=== PATIENT | male | born 1995 | race Caucasian/White ===

== ENCOUNTER 2021-06-25 12:36 | Inpatient (IN) | payer BC ==
[2021-06-25] MEDS ORDERED: Morphine 4 MG/ML VIAL ONE (13:18)
[2021-06-25] MEDS ORDERED: methylPREDNISolone Sod Succ/PF 125 MG/2 ML VIAL ONE (13:18)
[2021-06-25 13:35] LABS: Hemoglobin 12.8 g/dL (14.0-18.0); Mean Corpuscular HGB CONC 32.9 g/dL (32.0-36.0); Mean Corpuscular Hemoglobin 29.8 pg (27.0-31.0); Mean Corpuscular Volume 90.8 fL (78.0-98.0); Platelet Count 399 thou/uL (130-400); RBC Distribution Width 12.5 % (11.5-14.5); Red Blood Cell (RBC) Count 4.29 mill/uL (4.70-6.10)
[2021-06-25 13:53] LABS: Band 31 % (5-11); Eosinophils 2 % (0-10); Lymphocytes 8 % (21-51); MDiff Complete? YES; Monocytes 4 % (0-10); Neutrophil 54 % (42-75); Platelet Morphology Comment Appears Adequate; Polychromasia SLIGHT = 2-3 cells (100X) (0-2/hpf)
[2021-06-25 13:55] LABS: ALT (SGPT) 19 U/L (8-55); AST (SGOT) 12 U/L (5-34); Alkaline Phosphatase 55 U/L (40-110); Anion Gap 15 mmol/L (10-20); BUN (Urea Nitrogen) 9 mg/dL (8.9-20.6); Bilirubin, Total 0.4 mg/dL (0.2-1.2); Calc. Creatinine Clearance 0 mL/min (70-130); Calcium 9.1 mg/dL (7.8-10.44); Carbon Dioxide 27 mmol/L (22-29); Chloride 95 mmol/L (98-107); Globulin 3.7 g/dL (2.4-3.5); Glucose 127 mg/dL (70-105); Lipase 56 U/L (8-78); Potassium 3.7 mmol/L (3.5-5.1); Protein, Total 6.7 g/dL (6.0-8.3); Sodium 133 mmol/L (136-145)
[2021-06-25] MEDS ORDERED: Acetaminophen 650 MG Suppository PR PRN (14:48)
[2021-06-25] MEDS ORDERED: Ondansetron ODT 4 MG TAB PO PRN (14:48)
[2021-06-25] MEDS: Sodium Chloride 0.9% 1,000 ML IV SCH (16:05)
[2021-06-25 17:15] LABS: SARS-CoV-2 NAA Rapid Test Not Detected (NotDetected)
[2021-06-25] MEDS: metroNIDAZOLE 500 MG TAB PO SCH (21:51)
[2021-06-25] MEDS: Morphine 4 MG/ML VIAL SLOW IVP PRN (21:51)
[2021-06-25] MEDS: methylPREDNISolone Sod Succ 40 MG VIAL IVP SCH (21:51)
[2021-06-26] MEDS: Sodium Chloride 0.9% 1,000 ML IV SCH (01:50)
[2021-06-26] MEDS: Morphine 4 MG/ML VIAL SLOW IVP PRN ×4 (02:09→19:48)
[2021-06-26 02:51] VITALS: BMI 18.9
[2021-06-26] MEDS: methylPREDNISolone Sod Succ 40 MG VIAL IVP SCH ×2 (06:26→16:31)
[2021-06-26] MEDS ORDERED: methylPREDNISolone Sod Succ 40 MG VIAL IVP SCH (07:15)
[2021-06-26 08:05] LABS: Anion Gap 17 mmol/L (10-20); BUN (Urea Nitrogen) 13 mg/dL (8.9-20.6); Calc. Creatinine Clearance 148 mL/min (70-130); Calcium 8.8 mg/dL (7.8-10.44); Carbon Dioxide 22 mmol/L (22-29); Chloride 102 mmol/L (98-107); Glucose 126 mg/dL (70-105); Sodium 137 mmol/L (136-145)
[2021-06-26] MEDS: metroNIDAZOLE 500 MG TAB PO SCH (08:28)
[2021-06-26 08:30] LABS: Band 71 % (5-11); Lymphocytes 5 % (21-51); MDiff Complete? YES; Mean Corpuscular HGB CONC 32.1 g/dL (32.0-36.0); Mean Corpuscular Volume 90.3 fL (78.0-98.0); Mean Platelet Volume 6.3 fL (7.4-10.4); Metamyelocyte 3 % (0-0); Monocytes 3 % (0-10); Myelocyte 2 % (0-0); Neutrophil 12 % (42-75); Platelet Count 396 thou/uL (130-400); Platelet Morphology Comment Appears Adequate; Polychromasia SLIGHT = 2-3 cells (100X) (0-2/hpf); RBC Distribution Width 12.5 % (11.5-14.5); Reactive Lymphocytes 4 % (0-10); Red Blood Cell (RBC) Count 4.49 mill/uL (4.70-6.10); Target Cells SLIGHT = 2-5 cells (100X) (0-1/hpf); White Blood Cell (WBC) Count 13.7 thou/uL (4.8-10.8)
[2021-06-26] MEDS: traMADol HCl 50 MG TAB PO PRN ×3 (10:08→22:29)
[2021-06-26] MEDS: Acetaminophen 325 MG TAB PO PRN ×2 (16:30→21:14)
[2021-06-26] MEDS: Melatonin 3 MG TAB PO PRN (21:14)
[2021-06-27] MEDS: methylPREDNISolone Sod Succ 40 MG VIAL IVP SCH ×4 (00:12→23:13)
[2021-06-27] MEDS: Morphine 4 MG/ML VIAL SLOW IVP PRN ×5 (00:16→21:25)
[2021-06-27] MEDS: Acetaminophen 325 MG TAB PO PRN ×2 (00:54→23:13)
[2021-06-27] MEDS: traMADol HCl 50 MG TAB PO PRN ×4 (03:15→19:45)
[2021-06-27 10:41] LABS: Anion Gap 11 mmol/L (10-20); BUN (Urea Nitrogen) 16 mg/dL (8.9-20.6); Calc. Creatinine Clearance 134 mL/min (70-130); Calcium 8.8 mg/dL (7.8-10.44); Carbon Dioxide 29 mmol/L (22-29); Chloride 102 mmol/L (98-107); Glucose 133 mg/dL (70-105); Potassium 4.3 mmol/L (3.5-5.1); Sodium 138 mmol/L (136-145)
[2021-06-27 11:53] LABS: Band 52 % (5-11); Lymphocytes 4 % (21-51); MDiff Complete? YES; Mean Corpuscular HGB CONC 31.5 g/dL (32.0-36.0); Mean Corpuscular Hemoglobin 28.7 pg (27.0-31.0); Mean Corpuscular Volume 91.2 fL (78.0-98.0); Mean Platelet Volume 6.1 fL (7.4-10.4); Metamyelocyte 4 % (0-0); Monocytes 4 % (0-10); Neutrophil 36 % (42-75); Platelet Count 473 thou/uL (130-400); RBC Distribution Width 12.5 % (11.5-14.5); Red Blood Cell (RBC) Count 4.51 mill/uL (4.70-6.10)
[2021-06-28] MEDS: Morphine 4 MG/ML VIAL SLOW IVP PRN ×5 (00:40→19:16)
[2021-06-28] MEDS: traMADol HCl 50 MG TAB PO PRN ×5 (02:57→22:04)
[2021-06-28 08:05] LABS: Hemoglobin 12.8 g/dL (14.0-18.0); Mean Corpuscular HGB CONC 31.3 g/dL (32.0-36.0); Mean Corpuscular Hemoglobin 28.5 pg (27.0-31.0); Mean Platelet Volume 6.2 fL (7.4-10.4); Platelet Count 471 thou/uL (130-400); RBC Distribution Width 12.6 % (11.5-14.5); White Blood Cell (WBC) Count 16.1 thou/uL (4.8-10.8)
[2021-06-28 08:12] LABS: ALT (SGPT) 9 U/L (8-55); AST (SGOT) 8 U/L (5-34); Albumin 2.9 g/dL (3.5-5.0); Alkaline Phosphatase 56 U/L (40-110); Anion Gap 15 mmol/L (10-20); BUN (Urea Nitrogen) 17 mg/dL (8.9-20.6); Bilirubin, Total 0.3 mg/dL (0.2-1.2); Calc. Creatinine Clearance 128 mL/min (70-130); Calcium 9.1 mg/dL (7.8-10.44); Carbon Dioxide 29 mmol/L (22-29); Chloride 97 mmol/L (98-107); Glucose 118 mg/dL (70-105); Potassium 4.6 mmol/L (3.5-5.1); Protein, Total 5.9 g/dL (6.0-8.3); Sodium 136 mmol/L (136-145)
[2021-06-28] MEDS: methylPREDNISolone Sod Succ 40 MG VIAL IVP SCH ×2 (08:40→15:14)
[2021-06-28 10:21] LABS: Band 54 % (5-11); Lymphocytes 12 % (21-51); MDiff Complete? YES; Myelocyte 1 % (0-0); Neutrophil 33 % (42-75); Platelet Morphology Comment Appears Increased; Polychromasia SLIGHT = 2-3 cells (100X) (0-2/hpf); Toxic Granulation SLIGHT
[2021-06-28] MEDS ORDERED: Iopamidol-370 76% 500 ML 1 ML ONE (11:41)
[2021-06-29] MEDS: methylPREDNISolone Sod Succ 40 MG VIAL IVP SCH ×3 (00:12→15:54)
[2021-06-29] MEDS: Morphine 4 MG/ML VIAL SLOW IVP PRN ×5 (00:12→22:02)
[2021-06-29] MEDS: traMADol HCl 50 MG TAB PO PRN ×4 (03:28→18:17)
[2021-06-29 08:13] LABS: ALT (SGPT) 15 U/L (8-55); AST (SGOT) 14 U/L (5-34); Alkaline Phosphatase 48 U/L (40-110); Anion Gap 16 mmol/L (10-20); BUN (Urea Nitrogen) 18 mg/dL (8.9-20.6); Bilirubin, Total 0.3 mg/dL (0.2-1.2); Calc. Creatinine Clearance 142 mL/min (70-130); Calcium 8.9 mg/dL (7.8-10.44); Carbon Dioxide 28 mmol/L (22-29); Chloride 96 mmol/L (98-107); Globulin 3.2 g/dL (2.4-3.5); Glucose 119 mg/dL (70-105); Potassium 4.4 mmol/L (3.5-5.1); Protein, Total 6.2 g/dL (6.0-8.3); Sodium 136 mmol/L (136-145)
[2021-06-29 08:15] LABS: Hemoglobin 12.5 g/dL (14.0-18.0); Mean Corpuscular HGB CONC 31.1 g/dL (32.0-36.0); Mean Corpuscular Hemoglobin 28.2 pg (27.0-31.0); Mean Corpuscular Volume 90.7 fL (78.0-98.0); Mean Platelet Volume 6.2 fL (7.4-10.4); Platelet Count 436 thou/uL (130-400); RBC Distribution Width 12.8 % (11.5-14.5); Red Blood Cell (RBC) Count 4.42 mill/uL (4.70-6.10); White Blood Cell (WBC) Count 14.2 thou/uL (4.8-10.8)
[2021-06-29 10:35] LABS: Band 48 % (5-11); Lymphocytes 15 % (21-51); MDiff Complete? YES; Monocytes 1 % (0-10); Neutrophil 35 % (42-75); Platelet Morphology Comment Appears Increased; Polychromasia SLIGHT = 2-3 cells (100X) (0-2/hpf); Reactive Lymphocytes 1 % (0-10); Toxic Granulation SLIGHT; Vacuoles SLIGHT
[2021-06-30] MEDS: methylPREDNISolone Sod Succ 40 MG VIAL IVP SCH ×4 (00:26→23:44)
[2021-06-30] MEDS: Morphine 4 MG/ML VIAL SLOW IVP PRN ×5 (00:26→20:42)
[2021-06-30] MEDS: traMADol HCl 50 MG TAB PO PRN ×2 (03:13→08:17)
[2021-06-30 08:12] LABS: Hemoglobin 12.4 g/dL (14.0-18.0); Mean Corpuscular HGB CONC 31.7 g/dL (32.0-36.0); Mean Corpuscular Hemoglobin 28.8 pg (27.0-31.0); Mean Corpuscular Volume 90.8 fL (78.0-98.0); Mean Platelet Volume 6.1 fL (7.4-10.4); Platelet Count 427 thou/uL (130-400); RBC Distribution Width 12.9 % (11.5-14.5); White Blood Cell (WBC) Count 15.9 thou/uL (4.8-10.8)
[2021-06-30 08:22] LABS: Anion Gap 14 mmol/L (10-20); BUN (Urea Nitrogen) 18 mg/dL (8.9-20.6); Calc. Creatinine Clearance 142 mL/min (70-130); Calcium 9.1 mg/dL (7.8-10.44); Carbon Dioxide 31 mmol/L (22-29); Chloride 95 mmol/L (98-107); Glucose 120 mg/dL (70-105); Potassium 4.6 mmol/L (3.5-5.1); Sodium 135 mmol/L (136-145)
[2021-06-30 08:37] LABS: Band 53 % (5-11); Lymphocytes 8 % (21-51); MDiff Complete? YES; Metamyelocyte 1 % (0-0); Monocytes 4 % (0-10); Neutrophil 34 % (42-75); Platelet Morphology Comment Appears Increased; Polychromasia SLIGHT = 2-3 cells (100X) (0-2/hpf)
[2021-06-30] MEDS: Dicyclomine 10 MG CAP PO SCH ×3 (13:35→20:42)
[2021-06-30] MEDS: Acetaminophen 325 MG TAB PO PRN (22:46)
[2021-07-01] MEDS: traMADol HCl 50 MG TAB PO PRN ×4 (01:25→16:39)
[2021-07-01] MEDS: Morphine 4 MG/ML VIAL SLOW IVP PRN ×4 (03:48→21:16)
[2021-07-01] MEDS: methylPREDNISolone Sod Succ 40 MG VIAL IVP SCH ×2 (08:33→16:39)
[2021-07-01] MEDS: Dicyclomine 10 MG CAP PO SCH ×4 (08:33→21:15)
[2021-07-01] MEDS: Acetaminophen 325 MG TAB PO PRN (12:19)
[2021-07-02] MEDS: traMADol HCl 50 MG TAB PO PRN ×3 (00:07→19:53)
[2021-07-02] MEDS: methylPREDNISolone Sod Succ 40 MG VIAL IVP SCH ×3 (00:07→17:20)
[2021-07-02] MEDS: Melatonin 3 MG TAB PO PRN ×2 (00:08→22:21)
[2021-07-02] MEDS: Morphine 4 MG/ML VIAL SLOW IVP PRN ×4 (05:18→22:22)
[2021-07-02] MEDS: Dicyclomine 10 MG CAP PO SCH ×4 (07:59→20:02)
[2021-07-02 10:07] LABS: Anion Gap 15 mmol/L (10-20); BUN (Urea Nitrogen) 19 mg/dL (8.9-20.6); Calc. Creatinine Clearance 144 mL/min (70-130); Calcium 9.1 mg/dL (7.8-10.44); Carbon Dioxide 29 mmol/L (22-29); Chloride 95 mmol/L (98-107); Glucose 136 mg/dL (70-105); Magnesium 1.9 mg/dL (1.6-2.6); Phosphorus 4.2 mg/dL (2.3-4.7); Potassium 4.4 mmol/L (3.5-5.1); Sodium 135 mmol/L (136-145)
[2021-07-02 12:14] LABS: Hemoglobin 12.4 g/dL (14.0-18.0); Mean Corpuscular HGB CONC 31.6 g/dL (32.0-36.0); Mean Corpuscular Hemoglobin 28.7 pg (27.0-31.0); Mean Corpuscular Volume 90.9 fL (78.0-98.0); Mean Platelet Volume 6.3 fL (7.4-10.4); Platelet Count 465 thou/uL (130-400); Red Blood Cell (RBC) Count 4.33 mill/uL (4.70-6.10); White Blood Cell (WBC) Count 11.6 thou/uL (4.8-10.8)
[2021-07-02 12:56] LABS: Band 69 % (5-11); Lymphocytes 5 % (21-51); MDiff Complete? YES; Metamyelocyte 1 % (0-0); Neutrophil 21 % (42-75); Platelet Morphology Comment Appears Increased; Polychromasia SLIGHT = 2-3 cells (100X) (0-2/hpf); Reactive Lymphocytes 4 % (0-10)
[2021-07-02 19:34] LABS: SARS-CoV-2 PCR by NAA Not Detected (NotDetected)
[2021-07-02] MEDS: Enoxaparin Sodium 30 MG/0.3 ML SYRINGE SC SCH (20:02)
[2021-07-03] MEDS: methylPREDNISolone Sod Succ 40 MG VIAL IVP SCH ×4 (00:23→23:50)
[2021-07-03] MEDS: traMADol HCl 50 MG TAB PO PRN ×5 (01:30→23:54)
[2021-07-03] MEDS: Morphine 4 MG/ML VIAL SLOW IVP PRN ×3 (03:58→20:21)
[2021-07-03] MEDS: Dicyclomine 10 MG CAP PO SCH ×4 (08:45→20:18)
[2021-07-03] MEDS: Enoxaparin Sodium 30 MG/0.3 ML SYRINGE SC SCH (20:18)
[2021-07-03] MEDS: Melatonin 3 MG TAB PO PRN (22:18)
[2021-07-04] MEDS: Morphine 4 MG/ML VIAL SLOW IVP PRN ×4 (01:28→22:50)
[2021-07-04] MEDS: traMADol HCl 50 MG TAB PO PRN ×4 (05:08→20:00)
[2021-07-04] MEDS: Dicyclomine 10 MG CAP PO SCH ×4 (08:32→20:02)
[2021-07-04] MEDS: methylPREDNISolone Sod Succ 40 MG VIAL IVP SCH ×3 (08:33→23:01)
[2021-07-04] MEDS ORDERED: Iopamidol 370 76% 100 ML VIAL ONE (11:07)
[2021-07-04] MEDS: Enoxaparin Sodium 30 MG/0.3 ML SYRINGE SC SCH (20:01)
[2021-07-04] MEDS: Melatonin 3 MG TAB PO PRN (22:50)
[2021-07-05] MEDS: traMADol HCl 50 MG TAB PO PRN ×3 (02:28→12:39)
[2021-07-05 03:48] LABS: ALT (SGPT) 157 U/L (8-55); AST (SGOT) 34 U/L (5-34); Alkaline Phosphatase 75 U/L (40-110); Anion Gap 14 mmol/L (10-20); BUN (Urea Nitrogen) 23 mg/dL (8.9-20.6); Bilirubin, Total 0.3 mg/dL (0.2-1.2); CRP (Inflammatory) 1.91 mg/dL (= or < 0.5); Calc. Creatinine Clearance 151 mL/min (70-130); Calcium 9.1 mg/dL (7.8-10.44); Carbon Dioxide 27 mmol/L (22-29); Chloride 96 mmol/L (98-107); Glucose 132 mg/dL (70-105); Magnesium 2.1 mg/dL (1.6-2.6); Phosphorus 3.1 mg/dL (2.3-4.7); Potassium 4.3 mmol/L (3.5-5.1); Sodium 133 mmol/L (136-145)
[2021-07-05 03:57] LABS: Band 36 % (5-11); Hemoglobin 11.8 g/dL (14.0-18.0); Lymphocytes 6 % (21-51); MDiff Complete? YES; Mean Corpuscular HGB CONC 32.3 g/dL (32.0-36.0); Mean Corpuscular Hemoglobin 28.8 pg (27.0-31.0); Mean Corpuscular Volume 89.3 fL (78.0-98.0); Mean Platelet Volume 5.9 fL (7.4-10.4); Metamyelocyte 1 % (0-0); Monocytes 5 % (0-10); Myelocyte 1 % (0-0); Neutrophil 51 % (42-75); Platelet Count 520 thou/uL (130-400); Platelet Morphology Comment Appears Increased; RBC Distribution Width 13.1 % (11.5-14.5); RBC Morphology Normal; White Blood Cell (WBC) Count 18.3 thou/uL (4.8-10.8)
[2021-07-05] MEDS: Morphine 4 MG/ML VIAL SLOW IVP PRN ×3 (05:23→22:33)
[2021-07-05] MEDS: Dicyclomine 10 MG CAP PO SCH ×4 (08:50→21:01)
[2021-07-05] MEDS: methylPREDNISolone Sod Succ 40 MG VIAL IVP SCH ×3 (08:50→23:56)
[2021-07-05] MEDS: Polyethylene Glycol 3350 17 GM Packet PO SCH ×2 (16:46→21:01)
[2021-07-05] MEDS: Enoxaparin Sodium 30 MG/0.3 ML SYRINGE SC SCH (21:01)
[2021-07-05] MEDS: Ondansetron PF 4 MG/2 ML Vial IVP PRN (22:33)
[2021-07-06] MEDS: Morphine 4 MG/ML VIAL SLOW IVP PRN ×2 (03:34→10:30)
[2021-07-06] MEDS: Dicyclomine 10 MG CAP PO SCH ×4 (08:09→20:28)
[2021-07-06] MEDS: methylPREDNISolone Sod Succ 40 MG VIAL IVP SCH ×3 (08:10→23:45)
[2021-07-06] MEDS ORDERED: Lidocaine 1% PF 5 ML VIAL ONE (13:56)
[2021-07-06] MEDS ORDERED: PROPOFOL 200 MG/20 ML VIAL ONE (13:56)
[2021-07-06] MEDS ORDERED: Ondansetron HCl/PF 4 MG/2 ML Vial IVP PRN (14:00)
[2021-07-06] MEDS ORDERED: Promethazine HCl 25 MG/ML VIAL IM/IV PRN (14:00)
[2021-07-06] MEDS ORDERED: Fentanyl 100 MCG/2 ML VIAL ONE (14:44)
[2021-07-06] MEDS ORDERED: Non-Formulary Medication 1 EACH PO PRN (15:57)
[2021-07-06] MEDS: Enoxaparin Sodium 30 MG/0.3 ML SYRINGE SC SCH (20:28)
[2021-07-06] MEDS: Melatonin 3 MG TAB PO PRN (22:05)
[2021-07-07] MEDS: Morphine 4 MG/ML VIAL SLOW IVP PRN (01:57)
[2021-07-07] MEDS: Dicyclomine 10 MG CAP PO SCH ×4 (08:40→20:17)
[2021-07-07] MEDS: methylPREDNISolone Sod Succ 40 MG VIAL IVP SCH ×3 (08:41→23:37)
[2021-07-07] MEDS: traMADol HCl 50 MG TAB PO PRN (17:32)
[2021-07-07] MEDS: Enoxaparin Sodium 30 MG/0.3 ML SYRINGE SC SCH (20:17)
[2021-07-08] MEDS: Melatonin 3 MG TAB PO PRN (01:26)
[2021-07-08] MEDS: traMADol HCl 50 MG TAB PO PRN ×3 (03:41→12:47)
[2021-07-08] MEDS: Acetaminophen 325 MG TAB PO PRN (03:42)
[2021-07-08] MEDS: Dicyclomine 10 MG CAP PO SCH ×4 (08:33→20:36)
[2021-07-08] MEDS: methylPREDNISolone Sod Succ 40 MG VIAL IVP SCH ×3 (08:33→22:59)
[2021-07-08] MEDS: Morphine 4 MG/ML VIAL SLOW IVP PRN (16:32)
[2021-07-08] MEDS: Enoxaparin Sodium 30 MG/0.3 ML SYRINGE SC SCH (20:36)
[2021-07-09] MEDS: Morphine 4 MG/ML VIAL SLOW IVP PRN ×4 (01:12→20:25)
[2021-07-09] MEDS: traMADol HCl 50 MG TAB PO PRN ×3 (05:34→17:17)
[2021-07-09] MEDS: Acetaminophen 325 MG TAB PO PRN (05:34)
[2021-07-09] MEDS: Dicyclomine 10 MG CAP PO SCH ×4 (09:26→22:08)
[2021-07-09] MEDS: methylPREDNISolone Sod Succ 40 MG VIAL IVP SCH ×2 (09:26→16:15)
[2021-07-09 12:08] LABS: SARS-CoV-2 PCR by NAA Not Detected (NotDetected)
[2021-07-09] MEDS: Enoxaparin Sodium 30 MG/0.3 ML SYRINGE SC SCH (20:32)
[2021-07-09] MEDS ORDERED: Sodium Chloride 0.9% 500 ML IV SCH (23:15)
[2021-07-10] MEDS: methylPREDNISolone Sod Succ 40 MG VIAL IVP SCH ×4 (00:29→23:49)
[2021-07-10] MEDS: Morphine 4 MG/ML VIAL SLOW IVP PRN ×4 (02:55→21:16)
[2021-07-10] MEDS: traMADol HCl 50 MG TAB PO PRN ×2 (05:25→17:59)
[2021-07-10 07:22] LABS: ALT (SGPT) 67 U/L (8-55); AST (SGOT) 16 U/L (5-34); Albumin 2.8 g/dL (3.5-5.0); Alkaline Phosphatase 72 U/L (40-110); Anion Gap 13 mmol/L (10-20); BUN (Urea Nitrogen) 15 mg/dL (8.9-20.6); Bilirubin, Total 0.4 mg/dL (0.2-1.2); Calc. Creatinine Clearance 179 mL/min (70-130); Calcium 8.4 mg/dL (7.8-10.44); Carbon Dioxide 28 mmol/L (22-29); Chloride 97 mmol/L (98-107); Globulin 2.6 g/dL (2.4-3.5); Glucose 102 mg/dL (70-105); Potassium 4.1 mmol/L (3.5-5.1); Protein, Total 5.4 g/dL (6.0-8.3); Sodium 134 mmol/L (136-145)
[2021-07-10 07:40] LABS: Band 78 % (5-11); Hemoglobin 9.2 g/dL (14.0-18.0); Lymphocytes 8 % (21-51); MDiff Complete? YES; Mean Corpuscular HGB CONC 32.1 g/dL (32.0-36.0); Mean Corpuscular Hemoglobin 29.1 pg (27.0-31.0); Mean Corpuscular Volume 90.5 fL (78.0-98.0); Mean Platelet Volume 5.7 fL (7.4-10.4); Metamyelocyte 2 % (0-0); Monocytes 2 % (0-10); Neutrophil 7 % (42-75); Platelet Count 320 thou/uL (130-400); Platelet Morphology Comment Appears Adequate; RBC Distribution Width 14.2 % (11.5-14.5); RBC Morphology Normal; Reactive Lymphocytes 3 % (0-10); Red Blood Cell (RBC) Count 3.17 mill/uL (4.70-6.10); Toxic Granulation SLIGHT; White Blood Cell (WBC) Count 10.4 thou/uL (4.8-10.8)
[2021-07-10] MEDS: Dicyclomine 10 MG CAP PO SCH ×4 (08:32→21:06)
[2021-07-10] MEDS: Enoxaparin Sodium 30 MG/0.3 ML SYRINGE SC SCH (21:07)
[2021-07-11] MEDS: traMADol HCl 50 MG TAB PO PRN ×4 (02:10→20:30)
[2021-07-11] MEDS: Morphine 4 MG/ML VIAL SLOW IVP PRN ×4 (05:17→23:15)
[2021-07-11 08:04] LABS: Anion Gap 12 mmol/L (10-20); BUN (Urea Nitrogen) 14 mg/dL (8.9-20.6); Calc. Creatinine Clearance 179 mL/min (70-130); Calcium 8.3 mg/dL (7.8-10.44); Carbon Dioxide 29 mmol/L (22-29); Chloride 97 mmol/L (98-107); Glucose 110 mg/dL (70-105); Sodium 134 mmol/L (136-145)
[2021-07-11 08:18] LABS: Band 70 % (5-11); Hemoglobin 8.6 g/dL (14.0-18.0); Hypochromia SLIGHT = 6-15 cells (100X) (0-5/hpf); Lymphocytes 7 % (21-51); MDiff Complete? YES; Mean Corpuscular HGB CONC 31.8 g/dL (32.0-36.0); Mean Corpuscular Volume 91.1 fL (78.0-98.0); Metamyelocyte 1 % (0-0); Monocytes 10 % (0-10); Neutrophil 10 % (42-75); Platelet Count 303 thou/uL (130-400); Platelet Morphology Comment Appears Adequate; Polychromasia SLIGHT = 2-3 cells (100X) (0-2/hpf); RBC Distribution Width 14.4 % (11.5-14.5); Reactive Lymphocytes 2 % (0-10); Red Blood Cell (RBC) Count 2.97 mill/uL (4.70-6.10); White Blood Cell (WBC) Count 9.3 thou/uL (4.8-10.8)
[2021-07-11] MEDS: methylPREDNISolone Sod Succ 40 MG VIAL IVP SCH ×3 (08:21→23:15)
[2021-07-11] MEDS: Dicyclomine 10 MG CAP PO SCH ×4 (08:21→23:14)
[2021-07-11] MEDS: Enoxaparin Sodium 30 MG/0.3 ML SYRINGE SC SCH (20:32)
[2021-07-12] MEDS: traMADol HCl 50 MG TAB PO PRN ×5 (02:56→20:52)
[2021-07-12] MEDS: Morphine 4 MG/ML VIAL SLOW IVP PRN ×5 (06:02→23:19)
[2021-07-12] MEDS: methylPREDNISolone Sod Succ 40 MG VIAL IVP SCH ×2 (08:24→16:01)
[2021-07-12] MEDS: Dicyclomine 10 MG CAP PO SCH ×4 (08:24→20:46)
[2021-07-12] MEDS: Enoxaparin Sodium 30 MG/0.3 ML SYRINGE SC SCH (20:46)
[2021-07-13] MEDS: methylPREDNISolone Sod Succ 40 MG VIAL IVP SCH ×3 (01:09→16:13)
[2021-07-13] MEDS: traMADol HCl 50 MG TAB PO PRN ×4 (03:48→21:32)
[2021-07-13] MEDS: Morphine 4 MG/ML VIAL SLOW IVP PRN ×3 (06:42→16:14)
[2021-07-13] MEDS: Dicyclomine 10 MG CAP PO SCH ×4 (08:47→21:33)
[2021-07-13] MEDS: Enoxaparin Sodium 30 MG/0.3 ML SYRINGE SC SCH (21:33)
[2021-07-14] MEDS: methylPREDNISolone Sod Succ 40 MG VIAL IVP SCH ×4 (00:58→23:59)
[2021-07-14] MEDS: traMADol HCl 50 MG TAB PO PRN ×2 (03:09→08:19)
[2021-07-14] MEDS: Morphine 4 MG/ML VIAL SLOW IVP PRN ×2 (05:12→10:00)
[2021-07-14 07:29] LABS: Mean Corpuscular HGB CONC 32.4 g/dL (32.0-36.0); Mean Corpuscular Hemoglobin 29.2 pg (27.0-31.0); Mean Corpuscular Volume 90.2 fL (78.0-98.0); Mean Platelet Volume 5.6 fL (7.4-10.4); Platelet Count 256 thou/uL (130-400); RBC Distribution Width 15.1 % (11.5-14.5); Red Blood Cell (RBC) Count 2.73 mill/uL (4.70-6.10); White Blood Cell (WBC) Count 8.6 thou/uL (4.8-10.8)
[2021-07-14 07:36] LABS: Anion Gap 13 mmol/L (10-20); BUN (Urea Nitrogen) 17 mg/dL (8.9-20.6); Calc. Creatinine Clearance 176 mL/min (70-130); Calcium 8.4 mg/dL (7.8-10.44); Carbon Dioxide 28 mmol/L (22-29); Chloride 96 mmol/L (98-107); Glucose 99 mg/dL (70-105); Potassium 4.1 mmol/L (3.5-5.1); Sodium 133 mmol/L (136-145)
[2021-07-14] MEDS: Dicyclomine 10 MG CAP PO SCH ×4 (08:19→21:05)
[2021-07-14] MEDS: Multivit, Therapeutic 1 TAB PO SCH (08:29)
[2021-07-14] MEDS ORDERED: Morphine 4 MG/ML VIAL SLOW IVP PRN (09:16)
[2021-07-14 09:22] LABS: Band 57 % (5-11); Lymphocytes 16 % (21-51); MDiff Complete? YES; Monocytes 5 % (0-10); Neutrophil 22 % (42-75); Nucleated RBC 1 % (0); Platelet Morphology Comment Appears Adequate; Polychromasia SLIGHT = 2-3 cells (100X) (0-2/hpf)
[2021-07-14] MEDS: HYDROcodone/Acetaminophen 5/325 mg Tablet PO PRN ×3 (12:48→21:05)
[2021-07-14] MEDS: Enoxaparin Sodium 30 MG/0.3 ML SYRINGE SC SCH (21:04)
[2021-07-15] MEDS: Melatonin 3 MG TAB PO PRN (00:05)
[2021-07-15] MEDS: Morphine 4 MG/ML VIAL SLOW IVP PRN ×2 (00:05→05:50)
[2021-07-15] MEDS: Ondansetron PF 4 MG/2 ML Vial IVP PRN (01:37)
[2021-07-15] MEDS: HYDROcodone/Acetaminophen 5/325 mg Tablet PO PRN ×2 (01:46→08:42)
[2021-07-15] MEDS: Dicyclomine 10 MG CAP PO SCH ×3 (08:30→18:02)
[2021-07-15] MEDS: methylPREDNISolone Sod Succ 40 MG VIAL IVP SCH ×3 (08:41→23:52)
[2021-07-15] MEDS: Multivit, Therapeutic 1 TAB PO SCH (08:42)
[2021-07-15] MEDS ORDERED: Iopamidol 370 76% 50 ML VIAL FS ONE (11:39)
[2021-07-15 13:34] LABS: INR-International Normal Ratio 1.1; Prothrombin Time 14.3 sec (12.0-14.7)
[2021-07-15 13:35] LABS: PTT 30.1 sec (22.9-36.1)
[2021-07-15] MEDS ORDERED: Sodium Chloride 0.9% 30 ML ONE (14:21)
[2021-07-15] MEDS ORDERED: Fentanyl 100 MCG/2 ML VIAL ONE (14:25)
[2021-07-15] MEDS ORDERED: Albumin 5% 250 ML ONE (14:28)
[2021-07-15] MEDS ORDERED: Phenylephrine 10 MG/ML VIAL ONE (14:28)
[2021-07-15] MEDS ORDERED: ceFAZolin 2 GM/Dextrose 50 ML IVPB ONE (14:43)
[2021-07-15] MEDS ORDERED: cefOXitin 2 GM VIAL ONE (14:49)
[2021-07-15] MEDS ORDERED: Sodium Chloride 0.9% 100 ML ONE (14:49)
[2021-07-15] MEDS ORDERED: Dexamethasone 20 MG/5 ML VIAL ONE (14:57)
[2021-07-15] MEDS ORDERED: Glycopyrrolate 0.2 MG/ML 5 ML SYRINGE ONE (14:57)
[2021-07-15] MEDS ORDERED: Lidocaine 1% PF 5 ML VIAL ONE (14:57)
[2021-07-15] MEDS ORDERED: Ondansetron PF 4 MG/2 ML Vial ONE (14:57)
[2021-07-15] MEDS ORDERED: PROPOFOL 200 MG/20 ML VIAL ONE (14:57)
[2021-07-15] MEDS ORDERED: PHENYLEPHRINE-NS 100 MCG/ML 10 ML SYRINGE ONE (14:57)
[2021-07-15] MEDS ORDERED: Rocuronium Bromide 10 MG/ML (10ML VIAL) ONE (14:57)
[2021-07-15] MEDS ORDERED: HYDROmorphone 2 MG/ML VIAL ONE (16:36)
[2021-07-15] MEDS ORDERED: hydrALAZINE 20 MG/ML VIAL SLOW IVP PRN (17:38)
[2021-07-15] MEDS ORDERED: Promethazine HCl 25 MG/ML VIAL IM PRN ×2 (17:38→17:45)
[2021-07-15] MEDS ORDERED: Ondansetron PF 4 MG/2 ML Vial IVP PRN (17:38)
[2021-07-15] MEDS ORDERED: [UNRECOGNIZED DRUG - OTHER] IVPB SCH (17:45)
[2021-07-15] MEDS ORDERED: diphenhydrAMINE 25 MG CAP PO PRN (17:45)
[2021-07-15] MEDS ORDERED: Naloxone HCl 0.4 mg/ml Vial IV PRN (17:45)
[2021-07-15] MEDS ORDERED: ADMIXTURE FEE IVPB SCH (17:45)
[2021-07-15] MEDS ORDERED: Morphine CADD 100 ML IVPB SCH (17:45)
[2021-07-15] MEDS: Piperacillin/Tazobactam 3.375 GM in Sodium Chloride 0.9% 100 ML IVPB SCH ×2 (18:14→23:52)
[2021-07-15] MEDS: D5 1/2 NS w/20 mEq KCL 1,000 ML IV SCH (18:15)
[2021-07-15] MEDS: Morphine Sulfate 100 MG in Dextrose 5% in Water 98 ML IV SCH (18:37)
[2021-07-15] MEDS: Famotidine 20 MG TAB PO SCH (19:57)
[2021-07-15] MEDS ORDERED: Sodium Chloride 0.9% 1,000 ML IV SCH (20:00)
[2021-07-15] MEDS: Pantoprazole 40 MG VIAL IVP SCH (20:03)
[2021-07-15] MEDS: Famotidine/PF 20 mg/2ml Vial SLOW IVP SCH (20:03)
[2021-07-16] MEDS: D5 1/2 NS w/20 mEq KCL 1,000 ML IV SCH ×2 (03:38→10:02)
[2021-07-16] MEDS: Piperacillin/Tazobactam 3.375 GM in Sodium Chloride 0.9% 100 ML IVPB SCH ×3 (06:00→22:25)
[2021-07-16 06:55] LABS: Anion Gap 11 mmol/L (10-20); BUN (Urea Nitrogen) 14 mg/dL (8.9-20.6); Calc. Creatinine Clearance 146 mL/min (70-130); Calcium 8.5 mg/dL (7.8-10.44); Carbon Dioxide 29 mmol/L (22-29); Chloride 98 mmol/L (98-107); Glucose 159 mg/dL (70-105); Potassium 5.1 mmol/L (3.5-5.1); Sodium 133 mmol/L (136-145)
[2021-07-16] MEDS: methylPREDNISolone Sod Succ 40 MG VIAL IVP SCH ×2 (08:25→16:44)
[2021-07-16 09:17] LABS: Hemoglobin 9.4 g/dL (14.0-18.0); Mean Corpuscular Hemoglobin 29.2 pg (27.0-31.0); Mean Corpuscular Volume 91.2 fL (78.0-98.0); Mean Platelet Volume 5.5 fL (7.4-10.4); Platelet Count 211 thou/uL (130-400); RBC Distribution Width 15.6 % (11.5-14.5); Red Blood Cell (RBC) Count 3.23 mill/uL (4.70-6.10); White Blood Cell (WBC) Count 22.8 thou/uL (4.8-10.8)
[2021-07-16 09:23] LABS: Magnesium 1.6 mg/dL (1.6-2.6); Phosphorus 4.5 mg/dL (2.3-4.7)
[2021-07-16 09:32] LABS: Band 40 % (5-11); Lymphocytes 6 % (21-51); MDiff Complete? YES; Monocytes 6 % (0-10); Neutrophil 47 % (42-75); Ovalocytes SLIGHT = 2-5 cells (100X) (0-1/hpf); Platelet Morphology Comment Appears Adequate; Polychromasia SLIGHT = 2-3 cells (100X) (0-2/hpf); Reactive Lymphocytes 1 % (0-10)
[2021-07-16] MEDS: Enoxaparin Sodium 40 MG/0.4 ML SYRINGE SC SCH (09:53)
[2021-07-16] MEDS: Pantoprazole 40 MG VIAL IVP SCH ×2 (09:53→20:10)
[2021-07-16] MEDS: Famotidine 20 MG TAB PO SCH (09:55)
[2021-07-16] MEDS: Famotidine/PF 20 mg/2ml Vial SLOW IVP SCH (09:55)
[2021-07-16] MEDS: Lactated Ringer's 1,000 ML IV SCH ×2 (10:05→16:45)
[2021-07-16] MEDS ORDERED: Electrolyte Replacement Protocol 1 EACH FS SCH (10:30)
[2021-07-16] MEDS ORDERED: Magnesium 2 GM/50 ML 2 GM in Premix Bag 1 BAG IVPB SCH (10:30)
[2021-07-16] MEDS ORDERED: Electrolyte Replacement Protocol FS PRN (10:30)
[2021-07-16] MEDS: Morphine Sulfate 100 MG in Dextrose 5% in Water 98 ML IV SCH (13:06)
[2021-07-16 13:48] LABS: Actual Bicarbonate (HCO3v) 29 mEq/L (22-28); Analyzer IN Cardio OR; Base Excess 5.6 mEq/L (-2.0 to +3.0); Calcium, Ionized (venous) 1.09 mmol/L (1.16-1.32); Chloride (VBG) 96 mmol/L (98-106); Hemoglobin (Hb) 6.4 g/dL (13.2-17.3); Potassium (VBG) 3.78 mmol/L (3.70-5.30); Sodium 128.8 mmol/L (133-146)
[2021-07-16 13:49] LABS: Actual Bicarbonate (HCO3v) 29 mEq/L (22-28); Analyzer IN Cardio OR; Chloride (VBG) 95 mmol/L (98-106); Potassium (VBG) 4.12 mmol/L (3.70-5.30)
[2021-07-16] MEDS: diphenhydrAMINE 50 MG/ML VIAL IM/IV PRN (17:26)
[2021-07-17] MEDS: methylPREDNISolone Sod Succ 40 MG VIAL IVP SCH ×3 (00:21→17:58)
[2021-07-17] MEDS: diphenhydrAMINE 50 MG/ML VIAL IM/IV PRN ×2 (02:27→06:02)
[2021-07-17] MEDS: Lactated Ringer's 1,000 ML IV SCH ×3 (02:28→23:14)
[2021-07-17] MEDS: Morphine Sulfate 100 MG in Dextrose 5% in Water 98 ML IV SCH (03:21)
[2021-07-17 04:53] LABS: Band 48 % (5-11); Hemoglobin 6.8 g/dL (14.0-18.0); Hypochromia SLIGHT = 6-15 cells (100X) (0-5/hpf); MDiff Complete? YES; Mean Corpuscular HGB CONC 31.8 g/dL (32.0-36.0); Mean Corpuscular Volume 91.2 fL (78.0-98.0); Mean Platelet Volume 5.6 fL (7.4-10.4); Monocytes 5 % (0-10); Neutrophil 47 % (42-75); Platelet Count 172 thou/uL (130-400); Platelet Morphology Comment Appears Adequate; RBC Distribution Width 14.9 % (11.5-14.5); Red Blood Cell (RBC) Count 2.34 mill/uL (4.70-6.10); White Blood Cell (WBC) Count 18.1 thou/uL (4.8-10.8)
[2021-07-17 05:02] LABS: Anion Gap 11 mmol/L (10-20); BUN (Urea Nitrogen) 10 mg/dL (8.9-20.6); Calc. Creatinine Clearance 186 mL/min (70-130); Calcium 8.6 mg/dL (7.8-10.44); Carbon Dioxide 34 mmol/L (22-29); Chloride 94 mmol/L (98-107); Glucose 92 mg/dL (70-105); Magnesium 1.9 mg/dL (1.6-2.6); Phosphorus 3.1 mg/dL (2.3-4.7); Potassium 4.2 mmol/L (3.5-5.1); Sodium 135 mmol/L (136-145)
[2021-07-17] MEDS: Piperacillin/Tazobactam 3.375 GM in Sodium Chloride 0.9% 100 ML IVPB SCH ×3 (06:02→22:29)
[2021-07-17] MEDS ORDERED: Magnesium 2 GM/50 ML 2 GM in Premix Bag 1 BAG IVPB SCH (06:30)
[2021-07-17] MEDS: Pantoprazole 40 MG VIAL IVP SCH ×2 (08:26→22:33)
[2021-07-17] MEDS: Enoxaparin Sodium 40 MG/0.4 ML SYRINGE SC SCH (09:28)
[2021-07-17] MEDS: Multivitamins, Adult 10 ML, TRACE ELEMENT CONCENTRATE 1 ML in CLINIMIX E 5/20 2,000 ML IV SCH (15:02)
[2021-07-18] MEDS: methylPREDNISolone Sod Succ 40 MG VIAL IVP SCH ×4 (00:07→23:57)
[2021-07-18] MEDS: Lactated Ringer's 1,000 ML IV SCH ×2 (03:01→09:56)
[2021-07-18] MEDS: Piperacillin/Tazobactam 3.375 GM in Sodium Chloride 0.9% 100 ML IVPB SCH ×3 (05:18→20:25)
[2021-07-18] MEDS: Morphine Sulfate 100 MG in Dextrose 5% in Water 98 ML IV SCH (05:20)
[2021-07-18 05:40] LABS: ALT (SGPT) 34 U/L (8-55); AST (SGOT) 22 U/L (5-34); Albumin 2.2 g/dL (3.5-5.0); Alkaline Phosphatase 56 U/L (40-110); Anion Gap 11 mmol/L (10-20); BUN (Urea Nitrogen) 12 mg/dL (8.9-20.6); Bilirubin, Total 0.3 mg/dL (0.2-1.2); Calc. Creatinine Clearance 183 mL/min (70-130); Calcium 8.6 mg/dL (7.8-10.44); Carbon Dioxide 34 mmol/L (22-29); Chloride 96 mmol/L (98-107); Globulin 2.8 g/dL (2.4-3.5); Glucose 208 mg/dL (70-105); Potassium 3.5 mmol/L (3.5-5.1); Sodium 137 mmol/L (136-145)
[2021-07-18] MEDS ORDERED: Potassium Chloride 40 MEQ in Sodium Chloride 0.9% 250 ML 250 ML IVPB SCH (06:45)
[2021-07-18] MEDS: Enoxaparin Sodium 40 MG/0.4 ML SYRINGE SC SCH (09:10)
[2021-07-18] MEDS: Pantoprazole 40 MG VIAL IVP SCH ×2 (09:10→20:25)
[2021-07-18] MEDS: HYDROcodone/Acetaminophen 7.5/325 mg Tablet PO PRN ×2 (12:16→18:30)
[2021-07-18] MEDS: Multivitamins, Adult 10 ML, TRACE ELEMENT CONCENTRATE 1 ML in CLINIMIX E 5/20 2,000 ML IV SCH (14:46)
[2021-07-18] MEDS: Morphine 4 MG/ML VIAL SLOW IVP PRN (17:01)
[2021-07-19] MEDS: Melatonin 3 MG TAB PO PRN (00:42)
[2021-07-19] MEDS: Piperacillin/Tazobactam 3.375 GM in Sodium Chloride 0.9% 100 ML IVPB SCH ×3 (05:25→20:56)
[2021-07-19 08:28] LABS: #Lymphocytes 0.8 thou/uL (1.20-3.40); #Monocytes 0.6 thou/uL (0.11-0.59); #Neutrophils 7.6 thou/uL (1.40-6.50); %Basophils 0.1 % (0.0-1.0); %Eosinophils 0.5 % (0.0-10.0); %Lymphocytes 9.1 % (21.0-51.0); %Monocytes 6.9 % (0.0-10.0); %Neutrophils 83.5 % (42.0-75.0); Hemoglobin 8.1 g/dL (14.0-18.0); Mean Corpuscular HGB CONC 32.8 g/dL (32.0-36.0); Mean Corpuscular Hemoglobin 30.1 pg (27.0-31.0); Mean Corpuscular Volume 91.8 fL (78.0-98.0); Mean Platelet Volume 5.5 fL (7.4-10.4); Platelet Count 171 thou/uL (130-400); RBC Distribution Width 14.3 % (11.5-14.5); Red Blood Cell (RBC) Count 2.68 mill/uL (4.70-6.10); White Blood Cell (WBC) Count 9.1 thou/uL (4.8-10.8)
[2021-07-19 08:55] LABS: Anion Gap 10 mmol/L (10-20); BUN (Urea Nitrogen) 12 mg/dL (8.9-20.6); Calc. Creatinine Clearance 207 mL/min (70-130); Calcium 8.8 mg/dL (7.8-10.44); Carbon Dioxide 31 mmol/L (22-29); Chloride 101 mmol/L (98-107); Glucose 154 mg/dL (70-105); Potassium 3.8 mmol/L (3.5-5.1); Sodium 138 mmol/L (136-145)
[2021-07-19] MEDS: HYDROcodone/Acetaminophen 7.5/325 mg Tablet PO PRN ×3 (08:56→22:07)
[2021-07-19] MEDS: methylPREDNISolone Sod Succ 40 MG VIAL IVP SCH (08:57)
[2021-07-19] MEDS: Enoxaparin Sodium 40 MG/0.4 ML SYRINGE SC SCH (08:57)
[2021-07-19] MEDS: Pantoprazole 40 MG VIAL IVP SCH ×2 (08:57→20:57)
[2021-07-19] MEDS: Morphine 4 MG/ML VIAL SLOW IVP PRN (12:09)
[2021-07-19] MEDS: Ondansetron PF 4 MG/2 ML Vial IVP PRN ×2 (12:15→17:36)
[2021-07-19 13:37] LABS: CMV log 10 Quant 3.137 (.)
[2021-07-19] MEDS: Fat Emulsion 250 ML IVPB SCH (14:40)
[2021-07-19] MEDS: Multivitamins, Adult 10 ML, TRACE ELEMENT CONCENTRATE 1 ML in CLINIMIX E 5/20 2,000 ML IV SCH (14:41)
[2021-07-19] MEDS: buPROPion 75 MG TAB PO SCH (20:57)
[2021-07-20] MEDS: Morphine 4 MG/ML VIAL SLOW IVP PRN (01:28)
[2021-07-20] MEDS: HYDROcodone/Acetaminophen 7.5/325 mg Tablet PO PRN ×3 (05:16→18:45)
[2021-07-20] MEDS: Piperacillin/Tazobactam 3.375 GM in Sodium Chloride 0.9% 100 ML IVPB SCH ×3 (05:18→21:14)
[2021-07-20] MEDS: Ondansetron PF 4 MG/2 ML Vial IVP PRN ×2 (06:22→11:52)
[2021-07-20] MEDS ORDERED: predniSONE 20 MG TAB PO SCH (08:00)
[2021-07-20] MEDS: buPROPion 75 MG TAB PO SCH ×2 (09:48→21:15)
[2021-07-20] MEDS: Enoxaparin Sodium 40 MG/0.4 ML SYRINGE SC SCH (09:48)
[2021-07-20] MEDS: Pantoprazole 40 MG VIAL IVP SCH ×2 (09:49→21:15)
[2021-07-20 11:26] LABS: Hemoglobin 10.7 g/dL (14.0-18.0); Mean Corpuscular HGB CONC 30.8 g/dL (32.0-36.0); Mean Corpuscular Hemoglobin 28.4 pg (27.0-31.0); Mean Corpuscular Volume 92.2 fL (78.0-98.0); Mean Platelet Volume 5.7 fL (7.4-10.4); Platelet Count 233 thou/uL (130-400); RBC Distribution Width 14.9 % (11.5-14.5); Red Blood Cell (RBC) Count 3.77 mill/uL (4.70-6.10); White Blood Cell (WBC) Count 18.1 thou/uL (4.8-10.8)
[2021-07-20 11:40] LABS: Anion Gap 11 mmol/L (10-20); BUN (Urea Nitrogen) 16 mg/dL (8.9-20.6); Calc. Creatinine Clearance 194 mL/min (70-130); Calcium 8.3 mg/dL (7.8-10.44); Carbon Dioxide 29 mmol/L (22-29); Chloride 101 mmol/L (98-107); Glucose 118 mg/dL (70-105); Potassium 3.6 mmol/L (3.5-5.1); Sodium 137 mmol/L (136-145)
[2021-07-20 11:50] LABS: Band 15 % (5-11); Lymphocytes 9 % (21-51); MDiff Complete? YES; Metamyelocyte 1 % (0-0); Monocytes 1 % (0-10); Myelocyte 1 % (0-0); Neutrophil 73 % (42-75); Platelet Morphology Comment Appears Adequate; Polychromasia SLIGHT = 2-3 cells (100X) (0-2/hpf)
[2021-07-20] MEDS ORDERED: Sodium Chloride 0.9% 250 ML IV SCH (13:45)
[2021-07-20] MEDS: Multivitamins, Adult 10 ML, TRACE ELEMENT CONCENTRATE 1 ML in CLINIMIX E 5/20 2,000 ML IV SCH (15:00)
[2021-07-20] MEDS: methylPREDNISolone Sod Succ 40 MG VIAL IVP SCH ×2 (15:05→21:15)
[2021-07-20] MEDS ORDERED: Sodium Chloride 0.9% 750 ML IV SCH (15:45)
[2021-07-20] MEDS: Melatonin 3 MG TAB PO PRN (23:03)
[2021-07-21] MEDS: HYDROcodone/Acetaminophen 7.5/325 mg Tablet PO PRN ×2 (02:24→18:29)
[2021-07-21] MEDS: Piperacillin/Tazobactam 3.375 GM in Sodium Chloride 0.9% 100 ML IVPB SCH ×3 (05:05→21:17)
[2021-07-21] MEDS: methylPREDNISolone Sod Succ 40 MG VIAL IVP SCH ×2 (05:05→18:31)
[2021-07-21] MEDS: Pantoprazole 40 MG VIAL IVP SCH ×2 (09:29→21:18)
[2021-07-21] MEDS: buPROPion 75 MG TAB PO SCH ×2 (09:29→21:16)
[2021-07-21] MEDS: Enoxaparin Sodium 40 MG/0.4 ML SYRINGE SC SCH (09:29)
[2021-07-21 10:54] LABS: #Eosinphils 0.1 thou/uL (0.0-0.7); #Lymphocytes 1.1 thou/uL (1.20-3.40); #Monocytes 0.5 thou/uL (0.11-0.59); #Neutrophils 14.2 thou/uL (1.40-6.50); %Basophils 0.1 % (0.0-1.0); %Eosinophils 0.7 % (0.0-10.0); %Lymphocytes 6.7 % (21.0-51.0); %Monocytes 3.3 % (0.0-10.0); %Neutrophils 89.3 % (42.0-75.0); Hemoglobin 9.4 g/dL (14.0-18.0); Mean Corpuscular Hemoglobin 29.5 pg (27.0-31.0); Mean Corpuscular Volume 92.2 fL (78.0-98.0); Platelet Count 234 thou/uL (130-400); RBC Distribution Width 14.9 % (11.5-14.5); Red Blood Cell (RBC) Count 3.19 mill/uL (4.70-6.10); White Blood Cell (WBC) Count 15.9 thou/uL (4.8-10.8)
[2021-07-21 11:16] LABS: ALT (SGPT) 39 U/L (8-55); AST (SGOT) 13 U/L (5-34); Albumin 2.8 g/dL (3.5-5.0); Alkaline Phosphatase 64 U/L (40-110); Anion Gap 10 mmol/L (10-20); BUN (Urea Nitrogen) 15 mg/dL (8.9-20.6); Bilirubin, Total 0.4 mg/dL (0.2-1.2); Calc. Creatinine Clearance 202 mL/min (70-130); Calcium 8.6 mg/dL (7.8-10.44); Carbon Dioxide 28 mmol/L (22-29); Chloride 101 mmol/L (98-107); Globulin 3.2 g/dL (2.4-3.5); Glucose 177 mg/dL (70-105); Potassium 4.2 mmol/L (3.5-5.1); Sodium 135 mmol/L (136-145)
[2021-07-21] MEDS: Fat Emulsion 250 ML IVPB SCH (14:25)
[2021-07-21] MEDS: Multivitamins, Adult 10 ML, TRACE ELEMENT CONCENTRATE 1 ML in CLINIMIX E 5/20 2,000 ML IV SCH (14:26)
[2021-07-21 14:47] LABS: SARS-CoV-2 PCR by NAA Not Detected (NotDetected)
[2021-07-22] MEDS: HYDROcodone/Acetaminophen 7.5/325 mg Tablet PO PRN ×3 (00:03→21:01)
[2021-07-22] MEDS: Melatonin 3 MG TAB PO PRN ×2 (00:06→21:00)
[2021-07-22] MEDS: Piperacillin/Tazobactam 3.375 GM in Sodium Chloride 0.9% 100 ML IVPB SCH ×3 (06:15→21:02)
[2021-07-22] MEDS: methylPREDNISolone Sod Succ 40 MG VIAL IVP SCH ×2 (06:15→18:48)
[2021-07-22] MEDS: buPROPion 75 MG TAB PO SCH ×2 (08:47→21:00)
[2021-07-22] MEDS: Pantoprazole 40 MG VIAL IVP SCH ×2 (08:48→21:00)
[2021-07-22] MEDS: Enoxaparin Sodium 40 MG/0.4 ML SYRINGE SC SCH (08:48)
[2021-07-22] MEDS: Multivitamins, Adult 10 ML, TRACE ELEMENT CONCENTRATE 1 ML in CLINIMIX E 5/20 2,000 ML IV SCH (14:37)
[2021-07-22] MEDS: Sodium Chloride 0.9% 1,000 ML IV SCH (19:16)
[2021-07-23] MEDS: Morphine 4 MG/ML VIAL SLOW IVP PRN (00:33)
[2021-07-23] MEDS: HYDROcodone/Acetaminophen 7.5/325 mg Tablet PO PRN ×3 (03:55→20:53)
[2021-07-23] MEDS: Piperacillin/Tazobactam 3.375 GM in Sodium Chloride 0.9% 100 ML IVPB SCH ×2 (05:34→18:21)
[2021-07-23] MEDS: methylPREDNISolone Sod Succ 40 MG VIAL IVP SCH (05:35)
[2021-07-23] MEDS: Enoxaparin Sodium 40 MG/0.4 ML SYRINGE SC SCH (10:09)
[2021-07-23] MEDS: Pantoprazole 40 MG VIAL IVP SCH ×2 (10:10→20:52)
[2021-07-23] MEDS: buPROPion 75 MG TAB PO SCH ×2 (10:11→20:52)
[2021-07-23] MEDS: Fat Emulsion 250 ML IVPB SCH (18:18)
[2021-07-23] MEDS: Multivitamins, Adult 10 ML, TRACE ELEMENT CONCENTRATE 1 ML in CLINIMIX E 5/20 2,000 ML IV SCH (18:19)
[2021-07-23] MEDS: Melatonin 3 MG TAB PO PRN (20:53)
[2021-07-23] MEDS ORDERED: methylPREDNISolone Sod Succ 40 MG VIAL IVP SCH (21:00)
[2021-07-24] MEDS: HYDROcodone/Acetaminophen 7.5/325 mg Tablet PO PRN (04:33)
[2021-07-24] MEDS ORDERED: predniSONE 50 MG TAB PO SCH (08:00)
[2021-07-24] MEDS: Enoxaparin Sodium 40 MG/0.4 ML SYRINGE SC SCH (08:56)
[2021-07-24] MEDS: buPROPion 75 MG TAB PO SCH (08:56)
[2021-07-24] MEDS: Pantoprazole 40 MG VIAL IVP SCH (08:57)
[2021-07-24 11:49] VITALS: BP 119/83; TEMP 97.8
[2021-07-24] MEDS: Sodium Chloride 0.9% 1,000 ML IV SCH (13:57)
== END 2021-07-24 17:10 | disposition home or self-care (01) | DRG 329 ==
LOC: ERS 12:36 → ERHOLD 15:00 → T4-A 19:33 → CCU 07-15 17:17 → SURG A 07-17 13:20
PROVIDERS: ADMIT Family Medicine; ATTEND Internal Medicine
PROC: 0DBN8ZX Excision of Sigmoid Colon, Via Natural or Artificial Opening Endoscopic, Diagnostic (ICD-10-PCS; 2021-07-06)
PROC: 02HV33Z Insertion of Infusion Device into Superior Vena Cava, Percutaneous Approach (ICD-10-PCS; 2021-07-15)
PROC: B5181ZA Fluoroscopy of Superior Vena Cava using Low Osmolar Contrast, Guidance (ICD-10-PCS; 2021-07-15)
PROC: 0D9670Z Drainage of Stomach with Drainage Device, Via Natural or Artificial Opening (ICD-10-PCS; 2021-07-15)
PROC: 0DTE0ZZ Resection of Large Intestine, Open Approach (ICD-10-PCS; principal; 2021-07-17)
PROC: 0D1B0Z4 Bypass Ileum to Cutaneous, Open Approach (ICD-10-PCS; 2021-07-17)
PROC: 30233N1 Transfusion of Nonautologous Red Blood Cells into Peripheral Vein, Percutaneous Approach (ICD-10-PCS; 2021-07-17)
PROC: 3E0336Z Introduction of Nutritional Substance into Peripheral Vein, Percutaneous Approach (ICD-10-PCS; 2021-07-20)
PROC: 3E0G76Z Introduction of Nutritional Substance into Upper GI, Via Natural or Artificial Opening (ICD-10-PCS; 2021-07-20)
DX: K51.911 Ulcerative colitis, unspecified with rectal bleeding (principal); A41.9 Sepsis, unspecified organism; K65.8 Other peritonitis; R65.21 Severe sepsis with septic shock; K63.1 Perforation of intestine (nontraumatic); E43 Unspecified severe protein-calorie malnutrition; E87.1 Hypo-osmolality and hyponatremia; B25.8 Other cytomegaloviral diseases; A08.39 Other viral enteritis; D62 Acute posthemorrhagic anemia; K56.7 Ileus, unspecified; Z68.1 Body mass index [BMI] 19.9 or less, adult; Z20.822 Contact with and (suspected) exposure to COVID-19; K51.918 Ulcerative colitis, unspecified with other complication; K76.89 Other specified diseases of liver; F32.A Depression, unspecified; E86.0 Dehydration; E86.9 Volume depletion, unspecified; F90.9 Attention-deficit hyperactivity disorder, unspecified type; E83.42 Hypomagnesemia; T40.605A Adverse effect of unspecified narcotics, initial encounter; D69.6 Thrombocytopenia, unspecified; T38.0X5A Adverse effect of glucocorticoids and synthetic analogues, initial encounter; D72.829 Elevated white blood cell count, unspecified; B96.20 Unspecified Escherichia coli [E. coli] as the cause of diseases classified elsewhere; B96.4 Proteus (mirabilis) (morganii) as the cause of diseases classified elsewhere; B96.1 Klebsiella pneumoniae [K. pneumoniae] as the cause of diseases classified elsewhere; B95.2 Enterococcus as the cause of diseases classified elsewhere; Z98.890 Other specified postprocedural states; Z83.79 Family history of other diseases of the digestive system
CPT/HCPCS: 36415; 36430; 71045; 74018; 74177; 80048; 80053; 82805; 83605; 83690; 83735; 84100; 84134; 85025; 85610; 85652; 85730; 86140; 86850; 86900; 86901; 87040; 87045; 87046; 87070; 87077; 87186; 87205; 87324; 87427; 87449; 87497; 88305; 88307; 88341; 88342; 96361; 96374; 96375; A4649; C1751; C1776; C9113; J0690; J0694; J1100; J1170; J1200; J1650; J2270; J2274; J2370; J2405; J2543; J2704; J2920; J2930; J3010; J3475; J3480; J3490; J7030; J7050; J7070; J7120; J7512; J8499; P9016; P9045; Q0162; Q9967; S0028; U0002; U0003; U0005